=== PATIENT | female | born 1995 | race Caucasian/White ===

== ENCOUNTER 2016-10-06 15:54 | Emergency (ER) | payer OTHER ==
[~2016-10-06] VITALS: Ht 154.9 cm; Wt 66.5 kg
[~2016-10-06 15:54] MED LIST: PRENTAB26 PO
[2016-10-06 16:00] VITALS: TEMP 36.9; Ht 154.9 cm; Wt 66.5 kg
[2016-10-06] MEDS ORDERED: IBUPROFEN 800 MG TAB PO STA (16:12)
[2016-10-06] MEDS ORDERED: BCPILLS PO (16:23)
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
[2016-10-06 17:11] VITALS: BP 114/72; PULSE 78; O2SAT 98
== END 2016-10-06 17:11 | disposition home or self-care (01) ==
LOC: EDBD 15:54 → C.EDC 15:57 → MERGE 15:57 → C.EDC 17:11
DX: M54.2 Cervicalgia (principal); M54.9 Dorsalgia, unspecified; V89.2XXA Person injured in unspecified motor-vehicle accident, traffic, initial encounter; J45.909 Unspecified asthma, uncomplicated; N83.209 Unspecified ovarian cyst, unspecified side

== ENCOUNTER 2017-05-06 12:12 | Emergency (ER) | payer OTHER ==
[~2017-05-06] VITALS: Ht 157.5 cm; Wt 66.0 kg
[~2017-05-06 12:12] MED LIST changes: +BCPILLS PO
[2017-05-06 12:34] VITALS: TEMP 36.7; Ht 157.5 cm; Wt 66.0 kg
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
[2017-05-06 14:32] LABS: BASO % 0.2 %; BASO ABS # 0.01 K/uL (0-0.2); EOS % 1.1 %; EOS ABS # 0.07 K/uL (0-0.5); HEMOGLOBIN 14.1 g/dL (12.0-16.0); IG# 0.01 K/uL (0.00-0.02); LYMPH % 30.2 %; LYMPH ABS # 1.97 K/uL (1.2-3.4); MEAN CELL VOLUME 87.3 fL (80-100); MEAN CORPUSCULAR HEMOGLOBIN 30.8 pg (25-34); MEAN CORPUSCULAR HGB CONC 35.3 g/dl (32-36); MEAN PLATELET VOLUME 10.5 fL (7.4-10.4); MONO % 6.1 %; NEUT % 62.2 %; NEUT ABS # 4.06 K/uL (1.4-6.5); PLATELET COUNT 174 K/uL (130-400); RED CELL DISTRIBUTION WIDTH CV 13.3 % (11.5-14.5); RED CELL DISTRIBUTION WIDTH SD 42.3 fL (36.4-46.3); WHITE BLOOD COUNT 6.52 K/uL (4.8-10.8)
[2017-05-06 14:51] LABS: ALBUMIN 3.8 gm/dl (3.4-5.0); CREATININE 0.81 mg/dl (0.60-1.20)
[2017-05-06 14:54] LABS: TOTAL PROTEIN 7.6 gm/dl (6.4-8.2)
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
[2017-05-06 17:52] VITALS: BP 106/62; PULSE 91; O2SAT 98
== END 2017-05-06 18:24 | disposition home or self-care (01) ==
LOC: C.EDB 12:14 → C.EDD 18:24
DX: O26.90 Pregnancy related conditions, unspecified, unspecified trimester (principal); R10.31 Right lower quadrant pain; O99.519 Diseases of the respiratory system complicating pregnancy, unspecified trimester; J45.909 Unspecified asthma, uncomplicated; Z87.59 Personal history of other complications of pregnancy, childbirth and the puerperium

== ENCOUNTER → 2017-05-10 | Outpatient (CLI) | payer OTHER ==
[~2017-05-10] MED LIST changes: -PRENTAB26 PO
== END | disposition home or self-care (01) ==
LOC: C.LABPVFM 14:45
PROVIDERS: ATTEND Nurse Practitioner Family
DX: Z32.01 Encounter for pregnancy test, result positive (principal)